=== PATIENT | female | born 1950 | race Caucasian/White ===

== ENCOUNTER 2018-12-13 07:30 | Day surgery (SDC) | payer OTHER ==
[~2018-12-13 07:30] MED LIST: FOLGARD TABLET1 EACH PO; LOSARTAN-HCTZ1 EACH PO; OMEPRAZOLE40 MG PO; PROLIA60 MG/1 ML IM; SERTRALINE HCL50 MG PO; SYNTHROID75 MCG PO; [UNRECOGNIZED DRUG - OTHER] PO
== END 2018-12-13 13:40 | disposition home or self-care (01) ==
LOC: CIR.AMB 07:30
DX: M77.11 Lateral epicondylitis, right elbow (principal)